=== PATIENT | female | born 1995 ===

== ENCOUNTER 2018-03-31 06:35 | Inpatient (IN) ==
[2018-03-31] MEDS ORDERED: MEPERIDINE 25 MG/1 ML VIAL IV PRN (07:25)
[2018-03-31] MEDS ORDERED: LACTATED RINGERS 250 ML IV ONE (07:25)
[2018-03-31] MEDS ORDERED: LACTATED RINGERS 1,000 ML IV SCH ×2 (07:30→22:30)
[2018-03-31 07:51] LABS: Basophils % 0.1 % (0.0-0.8); Eosinophils % 0.5 % (0.00-10.9); Hemoglobin 12.2 GM/DL (12.0-16.0); Immature Granulocytes % 0.7 %; Immature Granulocytes Absolute 0.05 #; Lymphocytes % 25.5 % (21.3-54.2); Mean Corpuscular HGB Conc 32.1 GM/DL (32-36); Mean Corpuscular Hemoglobin 28 PG (27-34); Mean Corpuscular Volume 87.2 FL (87-102); Mean Platelet Volume 12.5 FL (9.6-12.0); Monocytes # 0.5 10*3/uL (0.11-0.8); Monocytes % 6.4 % (1.7-12.7); NRBC # 0.03 10*3/uL; Neutrophils # 5.1 10*3/uL (1.4-7.4); Neutrophils % 66.8 % (38.7-73.9); Platelet Count 173 T/CUMM (130-400); Red Blood Count 4.36 MC/CUMM (3.8-5.5); White Blood Count 7.7 T/CUMM (4-12)
[2018-03-31] MEDS: OXYTOCIN/LR 20 UNIT/1,000 ML BAG IV SCH ×2 (07:55→19:28)
[2018-03-31 08:41] LABS: Albumin 2.5 G/DL (3.4-5.0); Bilirubin,Total 0.4 MG/DL (0.2-1.0); Calcium 8.6 MG/DL (8.5-10.1); Osmolality,Calculated 269.8 MOS/KG (273-304); Potassium 4.2 MMOL/L (3.5-5.1); Total Protein 7.3 G/DL (6.4-8.3)
[2018-03-31] MEDS ORDERED: ONDANSETRON 4 MG/2 ML VIAL IV ONE (09:17)
[2018-03-31] MEDS ORDERED: ePHEDrine 50 MG/ML AMP IV PRN (09:17)
[2018-03-31] MEDS ORDERED: NALOXONE 0.4 MG/ML VIAL IV PRN (09:17)
[2018-03-31] MEDS ORDERED: diphenhydrAMINE 50 MG/1 ML VIAL IV PRN ×2 (09:17)
[2018-03-31 09:29] LABS: HIV Antigen/Antibody Result Nonreactive (Nonreactive); Hepatitis B Surface Ag Result Negative (Negative); Rubella Antibody IgG 15.2 IU/ML
[2018-03-31] MEDS ORDERED: fentaNYL 2 MCG/ROPIV 0.2% EPID 100 ML EPIDURAL SCH (09:30)
[2018-03-31] MEDS: CLINDAMYCIN INJ 900 MG in PREMIX 1 EACH IV SCH ×2 (09:57→18:03)
[2018-03-31] MEDS: ONDANSETRON 4 MG/2 ML VIAL IV PRN ×2 (10:29→20:04)
[2018-03-31] MEDS: LACTATED RINGERS 1,000 ML IV SCH ×2 (10:45→19:27)
[2018-03-31] MEDS ORDERED: CITRIC ACID/SODIUM CITRATE 30 ML UDCUP PO ONE (13:39)
[2018-03-31] MEDS ORDERED: FAMOTIDINE 20 MG/2 ML VIAL IV ONE (13:40)
[2018-03-31 15:59] LABS: Apearance,Urine CLEAR (Clear); Bacteria,Urine Occasional /HPF (Few); Bilirubin,Urine Negative (Negative); Blood, Urine Negative (Negative); Glucose,Urine (UA) Negative (Negative); Ketones,Urine Negative (Negative); Nitrite,Urine Negative (Negative); Protein,Urine Negative; RBC,Urine <1 /HPF (0-4); Squamous Epithelial Cell,Urine Occasional /HPF (0-10); Urine Color Straw (Yellow); Urine Specific Gravity 1.004 (1.001-1.035); Urine Urobilinogen < 2.0 EU/DL (0.2-1.0); WBC,Urine 1 /HPF (0-6)
[2018-03-31 21:57] LABS: Cord Arterial Blood HCO3 18.3 MMOL/L
[2018-03-31 22:01] LABS: Cord Venous Blood HCO3 20.4 MMOL/L; Cord Venous Blood PCO2 52.5 MMHG; Cord Venous Blood PO2 19.5
[2018-03-31] MEDS ORDERED: MORPHINE 10 MG/10 ML VIAL ONE (22:01)
[2018-03-31] MEDS ORDERED: LIDOCAINE MPF 2% /EPI 20 ML VIAL ONE (22:01)
[2018-03-31] MEDS ORDERED: PHENYLEPHRINE 1 MG/10 ML SYRINGE IV ONE (22:02)
[2018-03-31] MEDS ORDERED: ONDANSETRON 4 MG/2 ML VIAL IV PRN (22:03)
[2018-03-31] MEDS ORDERED: MAGNESIUM HYDROXIDE SUSP 30 ML UDCUP PO PRN (22:03)
[2018-03-31] MEDS ORDERED: ACETAMINOPHEN 325 MG TABLET PO PRN (22:03)
[2018-03-31] MEDS ORDERED: OXYTOCIN/LR 20 UNIT/1,000 ML BAG IV ONE (22:03)
[2018-03-31] MEDS ORDERED: SIMETHICONE CHEW 80 MG TABLET PO PRN (22:03)
[2018-03-31] MEDS ORDERED: RHO(D) IMMUNE GLOBULIN 300 MCG SYRINGE IM ONE (22:03)
[2018-04-01] MEDS ORDERED: PROMETHAZINE 25 MG/1 ML VIAL IM PRN (01:50)
[2018-04-01] MEDS: CLINDAMYCIN INJ 900 MG in PREMIX 1 EACH IV SCH ×3 (02:28→17:37)
[2018-04-01] MEDS ORDERED: MEPERIDINE 25 MG/1 ML VIAL IV PRN (03:31)
[2018-04-01 05:48] LABS: Hematocrit 33.1 VOL% (35.7-47.0); Hemoglobin 10.8 GM/DL (12.0-16.0); Immature Granulocytes % 0.5 %; Immature Granulocytes Absolute 0.06 #; Lymphocytes # 1.3 10*3/uL (1.4-4.0); Mean Corpuscular HGB Conc 32.6 GM/DL (32-36); Mean Corpuscular Hemoglobin 28 PG (27-34); Mean Platelet Volume 12.4 FL (9.6-12.0); Monocytes # 0.7 10*3/uL (0.11-0.8); NRBC # 0.02 10*3/uL; Neutrophils # 10.1 10*3/uL (1.4-7.4); Neutrophils % 82.5 % (38.7-73.9); Platelet Count 137 T/CUMM (130-400); Red Blood Count 3.85 MC/CUMM (3.8-5.5); Red Cell Distribution Width 16.1 % (9.3-17.3); White Blood Count 12.2 T/CUMM (4-12)
[2018-04-01] MEDS: METOCLOPRAMIDE 10 MG/2 ML VIAL IV SCH ×2 (08:51→14:59)
[2018-04-01] MEDS: MULTIVITAMIN (PRENATAL) TABLET PO SCH (08:54)
[2018-04-01] MEDS: MAGNESIUM HYDROXIDE SUSP 30 ML UDCUP PO SCH ×2 (08:54→20:51)
[2018-04-01] MEDS: DOCUSATE SODIUM 100 MG CAPSULE PO SCH ×2 (08:54→20:51)
[2018-04-01] MEDS: SIMETHICONE CHEW 80 MG TABLET PO SCH ×3 (08:57→20:51)
[2018-04-01 13:43] LABS: Basophils % 0.1 % (0.0-0.8); Eosinophils % 0.2 % (0.00-10.9); Hematocrit 29.9 VOL% (35.7-47.0); Hemoglobin 9.8 GM/DL (12.0-16.0); Immature Granulocytes % 0.6 %; Immature Granulocytes Absolute 0.06 #; Lymphocytes # 1.6 10*3/uL (1.4-4.0); Lymphocytes % 15.4 % (21.3-54.2); Mean Corpuscular HGB Conc 32.8 GM/DL (32-36); Mean Corpuscular Hemoglobin 28 PG (27-34); Mean Corpuscular Volume 86.2 FL (87-102); Mean Platelet Volume 11.9 FL (9.6-12.0); Monocytes # 0.7 10*3/uL (0.11-0.8); Monocytes % 6.1 % (1.7-12.7); NRBC # 0.02 10*3/uL; Neutrophils # 8.2 10*3/uL (1.4-7.4); Neutrophils % 77.6 % (38.7-73.9); Platelet Count 124 T/CUMM (130-400); Red Blood Count 3.47 MC/CUMM (3.8-5.5); Red Cell Distribution Width 16.3 % (9.3-17.3); White Blood Count 10.6 T/CUMM (4-12)
[2018-04-01] MEDS: IBUPROFEN 800 MG TABLET PO PRN (20:49)
[2018-04-02] MEDS: METOCLOPRAMIDE 10 MG/2 ML VIAL IV SCH ×2 (00:50→08:50)
[2018-04-02] MEDS: SIMETHICONE CHEW 80 MG TABLET PO SCH ×2 (03:42→08:50)
[2018-04-02 07:24] VITALS: BP 128/71
[2018-04-02] MEDS: DOCUSATE SODIUM 100 MG CAPSULE PO SCH (08:50)
[2018-04-02] MEDS: MULTIVITAMIN (PRENATAL) TABLET PO SCH (08:50)
[2018-04-02] MEDS: MAGNESIUM HYDROXIDE SUSP 30 ML UDCUP PO SCH (08:50)
[2018-04-02] MEDS ORDERED: BISACODYL 10 MG SUPP RECTAL PRN (10:06)
[2018-04-02] MEDS: IBUPROFEN 800 MG TABLET PO PRN (10:34)
== END 2018-04-02 14:10 | disposition home or self-care (01) | DRG 540 ==
LOC: N.LDOUT 06:35 → N.LD 06:38 → N.OB 04-01 01:10
PROVIDERS: ADMIT Obstetrics & Gynecology; ATTEND Obstetrics & Gynecology
PROC: LDCSECT (ICD-10-PCS; 2018-03-31 21:15)

== ENCOUNTER 2020-03-01 10:07 | Inpatient (IN) ==
[2020-03-01 11:22] LABS: Bacteria,Urine Few /HPF (Few); Bilirubin,Urine Negative (Negative); Blood, Urine Negative (Negative); Glucose,Urine (UA) Negative (Negative); Ketones,Urine Negative (Negative); Mucus,Urine Few /LPF (Occasional); Nitrite,Urine Negative (Negative); Protein,Urine 30 MG/DL; RBC,Urine 1 /HPF (0-4); Squamous Epithelial Cell,Urine Moderate /HPF (0-10); Urine Appearance CLOUDY (Clear); Urine Color Amber (Yellow); Urine Specific Gravity 1.024 (1.001-1.035); WBC,Urine 3 /HPF (0-6)
[2020-03-01] MEDS ORDERED: ACETAMINOPHEN/CODEINE 300-30 MG TABLET PO ONE (11:36)
[2020-03-01] MEDS ORDERED: MEPERIDINE 50 MG/1 ML VIAL IV ONE (12:20)
[2020-03-01] MEDS: LACTATED RINGERS 1,000 ML IV SCH ×2 (12:31→17:06)
[2020-03-01 12:43] LABS: Basophils % 0.1 % (0.0-0.8); Eosinophils % 0.4 % (0.00-10.9); Hematocrit 34.2 VOL% (35.7-47.0); Hemoglobin 10.8 GM/DL (12.0-16.0); Immature Granulocytes % 0.3 %; Immature Granulocytes Absolute 0.03 #; Lymphocytes # 1.1 10*3/uL (1.4-4.0); Lymphocytes % 10.2 % (21.3-54.2); Mean Corpuscular HGB Conc 31.6 GM/DL (32-36); Mean Corpuscular Volume 88.1 FL (87-102); Monocytes % 6.6 % (1.7-12.7); Neutrophils % 82.4 % (38.7-73.9); Platelet Count 235 T/CUMM (130-400); Red Blood Count 3.88 MC/CUMM (3.8-5.5); Red Cell Distribution Width 13.4 % (9.3-17.3); White Blood Count 10.3 T/CUMM (4-12)
[2020-03-01] MEDS ORDERED: ONDANSETRON 4 MG/2 ML VIAL IV ONE (12:51)
[2020-03-01] MEDS ORDERED: PROMETHAZINE 25 MG/1 ML VIAL IM ONE (13:00)
[2020-03-01 13:05] LABS: Albumin 2.6 G/DL (3.4-5.0); Bilirubin,Total 0.6 MG/DL (0.2-1.0); Calcium 8.6 MG/DL (8.5-10.1); Osmolality,Calculated 270.7 MOS/KG (273-304); Total Protein 7.1 G/DL (6.4-8.3)
[2020-03-01] MEDS ORDERED: ONDANSETRON 4 MG/2 ML VIAL IV PRN (17:14)
[2020-03-01] MEDS ORDERED: LACTATED RINGERS 1,000 ML IV SCH (17:30)
[2020-03-01 17:40] LABS: Basophils % 0.2 % (0.0-0.8); Eosinophils % 0.4 % (0.00-10.9); Hemoglobin 10.6 GM/DL (12.0-16.0); Immature Granulocytes % 0.3 %; Immature Granulocytes Absolute 0.03 #; Lymphocytes # 1.1 10*3/uL (1.4-4.0); Mean Corpuscular HGB Conc 32.1 GM/DL (32-36); Mean Corpuscular Volume 86.2 FL (87-102); Mean Platelet Volume 10.7 FL (9.6-12.0); Neutrophils % 82.1 % (38.7-73.9); Platelet Count 212 T/CUMM (130-400); Red Blood Count 3.83 MC/CUMM (3.8-5.5); Red Cell Distribution Width 13.4 % (9.3-17.3); White Blood Count 10.5 T/CUMM (4-12)
[2020-03-02] MEDS: LACTATED RINGERS 1,000 ML IV SCH (04:38)
[2020-03-02] MEDS: levETIRAcetam 500 MG TABLET PO SCH ×2 (08:16→18:45)
[2020-03-02 16:28] VITALS: BP 105/58
== END 2020-03-02 18:55 | disposition home or self-care (01) | DRG 566 ==
LOC: N.LDOUT 10:07 → N.LD 10:10 → N.OB 03-02 11:39
PROVIDERS: ADMIT Obstetrics & Gynecology; ATTEND Obstetrics & Gynecology

== ENCOUNTER 2020-05-16 11:28 | Inpatient (IN) ==
[2020-05-16] MEDS ORDERED: LACTATED RINGERS 250 ML IV ONE (12:08)
[2020-05-16] MEDS ORDERED: LACTATED RINGERS 500 ML IV PRN (12:08)
[2020-05-16] MEDS ORDERED: ONDANSETRON 4 MG/2 ML VIAL IV PRN (12:08)
[2020-05-16] MEDS ORDERED: INFLUENZA VIRUS VACCINE 0.5 ML SYRINGE IM ONE (12:43)
[2020-05-16] MEDS: LACTATED RINGERS 1,000 ML IV SCH ×2 (13:35→20:40)
[2020-05-16] MEDS ORDERED: ACETAMINOPHEN 325 MG TABLET PO PRN (14:53)
[2020-05-16] MEDS ORDERED: MEPERIDINE 50 MG/1 ML VIAL IV ONE ×2 (17:10→21:53)
[2020-05-16] MEDS ORDERED: MEPERIDINE 50 MG/1 ML VIAL ONE (17:11)
[2020-05-16] MEDS: levETIRAcetam 500 MG TABLET PO SCH (21:54)
[2020-05-17 05:10] LABS: Basophils % 0.2 % (0.0-0.8); Eosinophils % 0.7 % (0.00-10.9); Hematocrit 29.7 VOL% (35.7-47.0); Hemoglobin 9.3 GM/DL (12.0-16.0); Immature Granulocytes % 0.2 %; Immature Granulocytes Absolute 0.01 #; Lymphocytes # 1.2 10*3/uL (1.4-4.0); Lymphocytes % 25.8 % (21.3-54.2); Mean Corpuscular HGB Conc 31.3 GM/DL (32-36); Mean Corpuscular Volume 77.5 FL (87-102); Mean Platelet Volume 11.6 FL (9.6-12.0); Monocytes % 7.4 % (1.7-12.7); NRBC # 0.03 10*3/uL; Neutrophils % 65.7 % (38.7-73.9); Platelet Count 160 T/CUMM (130-400); Red Blood Count 3.83 MC/CUMM (3.8-5.5); Red Cell Distribution Width 15.8 % (9.3-17.3); White Blood Count 4.6 T/CUMM (4-12)
[2020-05-17 05:23] LABS: PT Patient Result 10.3 SECS (9.8-11.9); Partial Thromboplastin Time 27.4 SECS (23.9-33.8)
[2020-05-17 05:31] LABS: Alanine Aminotransferase < 9 U/L (13-56); Albumin 2.4 G/DL (3.4-5.0); Alkaline Phosphatase 247 U/L (45-117); Aspartate Amino Transferase 11 U/L (0-37); Bilirubin,Total < 0.39 MG/DL (0.2-1.0); Blood Urea Nitrogen 7 MG/DL (7-18); Calcium 8.8 MG/DL (8.5-10.1); Estimated Glom Filtration Rate 140 ML/MIN; Glucose 73 MG/DL (74-106); Osmolality,Calculated 271.7 MOS/KG (273-304); Total Protein 6.5 G/DL (6.4-8.3); Uric Acid 4.4 MG/DL (2.6-6.0)
[2020-05-17] MEDS ORDERED: OXYTOCIN/LR 20 UNIT/1,000 ML BAG IV ONE ×2 (06:55→09:36)
[2020-05-17] MEDS ORDERED: OXYTOCIN/LR 30 UNIT/1,000 ML BAG IV ONE (06:55)
[2020-05-17] MEDS ORDERED: OXYTOCIN 10 UNIT/ML VIAL IM ONE (06:55)
[2020-05-17] MEDS ORDERED: CITRIC ACID/SODIUM CITRATE 30 ML UDCUP PO ONE (07:00)
[2020-05-17] MEDS ORDERED: ceFAZolin 2,000 MG in PREMIX 1 EACH IV ONE (07:00)
[2020-05-17] MEDS ORDERED: FAMOTIDINE 20 MG/2 ML VIAL IV ONE ×2 (07:36→07:45)
[2020-05-17] MEDS: LACTATED RINGERS 1,000 ML IV SCH (08:07)
[2020-05-17] MEDS: levETIRAcetam 500 MG TABLET PO SCH ×2 (08:12→20:48)
[2020-05-17] MEDS ORDERED: BUPIVACAINE SPINAL 0.75% 2 ML AMP SPINAL ONE ×2 (08:26)
[2020-05-17] MEDS ORDERED: ONDANSETRON 4 MG/2 ML VIAL ONE (08:28)
[2020-05-17] MEDS ORDERED: MORPHINE 10 MG/10 ML VIAL ONE (08:33)
[2020-05-17] MEDS ORDERED: fentaNYL 100 MCG/2 ML VIAL ONE (08:33)
[2020-05-17] MEDS ORDERED: PHENYLEPHRINE 1 MG/10 ML SYRINGE IV ONE (08:58)
[2020-05-17] MEDS ORDERED: AMITRIPTYLINE 10 MG TABLET PO SCH (09:00)
[2020-05-17] MEDS ORDERED: ACETAMINOPHEN 1,000 MG/100 ML VIAL IV ONE (09:13)
[2020-05-17] MEDS ORDERED: MIDAZOLAM 2 MG/2 ML VIAL ONE (09:17)
[2020-05-17] MEDS ORDERED: DEXAMETHASONE 4 MG/1 ML VIAL ONE (09:21)
[2020-05-17 09:27] LABS: Cord Arterial Blood HCO3 23.3 MMOL/L
[2020-05-17 09:28] LABS: Cord Venous Blood HCO3 25.4 MMOL/L; Cord Venous Blood PCO2 43.3 MMHG; Cord Venous Blood PO2 32.2 MMHG
[2020-05-17 09:30] LABS: Bilirubin,Urine Negative (Negative); Blood, Urine Negative (Negative); Glucose,Urine (UA) Negative (Negative); Ketones,Urine Negative (Negative); Nitrite,Urine Negative (Negative); Protein,Urine Negative; RBC,Urine 1 /HPF (0-4); Squamous Epithelial Cell,Urine Occasional /HPF (0-10); Urine Appearance CLEAR (Clear); Urine Color Straw (Yellow); Urine Urobilinogen < 2.0 EU/DL (0.2-1.0); WBC,Urine <1 /HPF (0-6)
[2020-05-17] MEDS ORDERED: ACETAMINOPHEN 325 MG TABLET PO PRN (09:36)
[2020-05-17] MEDS ORDERED: ONDANSETRON 4 MG/2 ML VIAL IV PRN (09:36)
[2020-05-17] MEDS ORDERED: MAGNESIUM HYDROXIDE SUSP 30 ML UDCUP PO PRN (09:36)
[2020-05-17] MEDS ORDERED: RHO(D) IMMUNE GLOBULIN 300 MCG SYRINGE IM ONE (09:36)
[2020-05-17] MEDS ORDERED: SIMETHICONE CHEW 80 MG TABLET PO PRN (09:36)
[2020-05-17] MEDS ORDERED: ceFAZolin 1,000 MG in SYRINGE 1 EACH IV SCH (10:00)
[2020-05-17] MEDS ORDERED: LACTATED RINGERS 1,000 ML IV SCH (10:00)
[2020-05-17 16:34] LABS: Basophils % 0.1 % (0.0-0.8); Hematocrit 30.5 VOL% (35.7-47.0); Hemoglobin 9.4 GM/DL (12.0-16.0); Immature Granulocytes % 0.5 %; Immature Granulocytes Absolute 0.06 #; Lymphocytes # 0.9 10*3/uL (1.4-4.0); Lymphocytes % 7.3 % (21.3-54.2); Mean Corpuscular HGB Conc 30.8 GM/DL (32-36); Mean Corpuscular Volume 76.4 FL (87-102); Mean Platelet Volume 11.2 FL (9.6-12.0); Monocytes % 2.8 % (1.7-12.7); NRBC # 0.03 10*3/uL; Neutrophils % 89.3 % (38.7-73.9); Platelet Count 167 T/CUMM (130-400); Red Blood Count 3.99 MC/CUMM (3.8-5.5); Red Cell Distribution Width 15.3 % (9.3-17.3); White Blood Count 12.2 T/CUMM (4-12)
[2020-05-17] MEDS: CLINDAMYCIN INJ 900 MG in PREMIX 1 EACH IV SCH (16:44)
[2020-05-18] MEDS: DOCUSATE SODIUM 100 MG CAPSULE PO SCH ×3 (00:02→21:07)
[2020-05-18] MEDS: CLINDAMYCIN INJ 900 MG in PREMIX 1 EACH IV SCH (00:30)
[2020-05-18 06:29] LABS: Basophils % 0.1 % (0.0-0.8); Eosinophils % 0.1 % (0.00-10.9); Hematocrit 25.8 VOL% (35.7-47.0); Immature Granulocytes % 0.3 %; Immature Granulocytes Absolute 0.03 #; Lymphocytes # 2.1 10*3/uL (1.4-4.0); Lymphocytes % 24.2 % (21.3-54.2); Mean Corpuscular Volume 77.5 FL (87-102); Mean Platelet Volume 11.4 FL (9.6-12.0); Monocytes % 7.3 % (1.7-12.7); NRBC # 0.03 10*3/uL; Platelet Count 149 T/CUMM (130-400); Red Blood Count 3.33 MC/CUMM (3.8-5.5); Red Cell Distribution Width 15.6 % (9.3-17.3); White Blood Count 8.7 T/CUMM (4-12)
[2020-05-18 07:04] LABS: Hypochromasia Slight; Lymphocytes 24 % (20-55); Microcytosis 1+; Platelet Estimate Normal; Segmented Neutrophils 73 % (50-85); Total Cells Counted 100
[2020-05-18] MEDS: MULTIVITAMIN (PRENATAL) TABLET PO SCH (08:35)
[2020-05-18] MEDS: FERROUS SULFATE 325 MG TABLET PO SCH ×2 (08:35→21:08)
[2020-05-18] MEDS: levETIRAcetam 500 MG TABLET PO SCH ×2 (08:35→21:08)
[2020-05-18] MEDS: AMITRIPTYLINE 10 MG TABLET PO SCH (08:35)
[2020-05-18] MEDS ORDERED: METOCLOPRAMIDE 10 MG TABLET PO PRN (11:06)
[2020-05-18] MEDS: IBUPROFEN 800 MG TABLET PO PRN (11:44)
[2020-05-19] MEDS: IBUPROFEN 800 MG TABLET PO PRN (00:36)
[2020-05-19 07:14] VITALS: BP 121/87
[2020-05-19] MEDS: FERROUS SULFATE 325 MG TABLET PO SCH (11:05)
[2020-05-19] MEDS: DOCUSATE SODIUM 100 MG CAPSULE PO SCH (11:05)
[2020-05-19] MEDS: AMITRIPTYLINE 10 MG TABLET PO SCH (11:05)
[2020-05-19] MEDS: levETIRAcetam 500 MG TABLET PO SCH (11:05)
[2020-05-19] MEDS: MULTIVITAMIN (PRENATAL) TABLET PO SCH (11:05)
== END 2020-05-19 12:05 | disposition home or self-care (01) | DRG 540 ==
LOC: N.LDOUT 11:28 → N.OB 11:28 → OBSVTOIN 11:35 → N.LD 05-17 02:00 → N.OB 05-17 12:27
PROVIDERS: ADMIT Obstetrics & Gynecology; ATTEND Obstetrics & Gynecology
PROC: LDCSECT (ICD-10-PCS; 2020-05-17 08:30)